=== PATIENT | female | born 1970 | race Two or more races ===

== ENCOUNTER 2020-03-26 09:52 | Emergency (ER) | payer BC ==
[~2020-03-26] VITALS: Ht 154.9 cm; Wt 49.9 kg
[2020-03-26 09:54] VITALS: BP 103/51
== END 2020-03-26 11:03 | disposition home or self-care (01) ==
LOC: ER 09:52
DX: S20.211A Contusion of right front wall of thorax, initial encounter (principal); Y08.89XA Assault by other specified means, initial encounter; Y93.89 Activity, other specified; Y92.89 Other specified places as the place of occurrence of the external cause; Y99.8 Other external cause status
CPT/HCPCS: 71046; 93005